=== PATIENT | female | born 1935 | race Caucasian/White ===

== ENCOUNTER 2017-10-20 14:27 | Day surgery (SDC) | payer OTHER ==
[2017-10-20] MEDS ORDERED: IODIXANOL LOCM 100 ML BTL (17:17)
[2017-10-20] MEDS ORDERED: FENTAnyl 50 MCG/ML VIAL (17:17)
[2017-10-20] MEDS ORDERED: LIDOCAINE 1% (MDV) 20 ML INJ (17:17)
[2017-10-20] MEDS ORDERED: HEPARIN 1000 UNITS/ML 10 ML INJ (17:17)
[2017-10-20] MEDS ORDERED: MIDAZOLAM 1 MG/ML 2 ML INJ (17:17)
[2017-10-20] MEDS ORDERED: SOD CHLORIDE 0.9% 500 ML (18:05)
[2017-10-20] MEDS ORDERED: hydrALAzine 20 MG INJ (18:06)
[2017-10-20] MEDS ORDERED: ACETAMINOPHEN 325 MG TAB (21:08)
[2017-10-20] MEDS: ACETAMINOPHEN 325 MG TAB PO (21:12)
== END 2017-10-20 22:27 | disposition home or self-care (01) ==
LOC: SDS 14:27
DX: I73.9 Peripheral vascular disease, unspecified (principal)
CPT/HCPCS: 36247; 75630; 82962